=== PATIENT | female | born 1945 | race Asian ===

== ENCOUNTER 2017-07-07 12:42 | Emergency (ER) | payer OTHER ==
[~2017-07-07] VITALS: Ht 160 cm; Wt 58.2 kg
[2017-07-07 12:49] VITALS: BP 158/85
[2017-07-07] MEDS ORDERED: VIT C PO (12:54)
[2017-07-07] MEDS ORDERED: ATOR10TA69 PO (12:54)
[2017-07-07] MEDS ORDERED: VALS80TA2 PO (12:54)
[2017-07-07] MEDS ORDERED: CYCLOBENZAPRINE HCL 10 MG TABLET PO ONE (13:15)
[2017-07-07] MEDS ORDERED: ACETAMINOPHEN 325 MG TABLET PO ONE (13:15)
== END 2017-07-07 13:46 | disposition home or self-care (01) ==
LOC: EMS 12:46
DX: S39.012A Strain of muscle, fascia and tendon of lower back, initial encounter (principal); I10 Essential (primary) hypertension; E78.00 Pure hypercholesterolemia, unspecified; Z88.8 Allergy status to other drugs, medicaments and biological substances; X50.0XXA Overexertion from strenuous movement or load, initial encounter; Y93.89 Activity, other specified; Y92.89 Other specified places as the place of occurrence of the external cause; Y99.8 Other external cause status
CPT/HCPCS: 99283

== ENCOUNTER → 2019-10-08 | Outpatient (CLI) | payer OTHER ==
[~2019-10-08] MED LIST: ATOR10TA69 PO; VALS80TA2 PO; VIT C PO
== END | disposition home or self-care (01) ==
LOC: RADPV 10:52
PROVIDERS: ATTEND Internal Medicine Nephrology
DX: I12.9 Hypertensive chronic kidney disease with stage 1 through stage 4 chronic kidney disease, or unspecified chronic kidney disease (principal); Z88.8 Allergy status to other drugs, medicaments and biological substances
CPT/HCPCS: 76770